=== PATIENT | female | born 1990 | race Caucasian/White ===

== ENCOUNTER 2018-05-30 06:57 | Inpatient (IN) | payer BC ==
[~2018-05-30] VITALS: Ht 175.3 cm; Wt 87.2 kg
[2018-05-30] VITALS (33 sets, daily range): BP systolic 94–124; BP diastolic 54–84; PULSE 72–109; TEMP 97.5–98.5
[~2018-05-30 06:57] MED LIST: MOTRIN 800800 MG/TAB PO; PERCOCET 325 MG1 TA2 PO; PRENATAL; ZANTAC 7575 MG PO
--- NOTE | 2018-05-30 07:04 | NUR ---
[id number] Hardin ambulatory to LR 5 for scheduled induction of labor. Reports good FM, no VB or LOF. Assisted into gown and advised on plan of care. 0711-Placed on EFM. VSS, see flow record. Assessment complete. 0727-IV to left hand, blood collected and sent to lab per order, LR infusing per order. Consents reviewed and signed. 0748-SVE /-2, YOI, repositioned WL. 0751-Pitocin started per protocol, see EMAR. Updated on plan of care.
[2018-05-30] MEDS ORDERED: PROMETRIUM200 M1 PO (07:05)
[2018-05-30 08:16] LABS: BASO % 0.1 % (0.0-2.0); EOS # 0.1 (0.0-0.7); EOS % 1.3 % (0-4.0); GRAN # 6.1 (1.4-6.5); GRAN % 71.5 % (42.2-75.2); HEMOGLOBIN 13.2 g/dl (12.5-16.0); LYMPH # 1.6 (1.2-3.4); LYMPH % 18.6 % (20.0-51.0); MEAN CELL VOLUME 93 fl (80.0-100.0); MEAN CORPUSCULAR HEMOGLOBIN 31 pg (27.0-31.0); MEAN CORPUSCULAR HGB CONC 34 g/dl (33.0-37.0); MEAN PLATELET VOLUME 11.9 fl (7.4-10.4); MONO # 0.7 (0.1-0.6); MONO % 7.9 % (1.7-9.3); PLATELET COUNT 208 K/mm3 (130-400); RED BLOOD COUNT 4.21 M/mm3 (4.10-5.30); REDCELL DISTRIBUTION WIDTH-CV 13.6 % (11.5-14.5)
--- NOTE | 2018-05-30 08:20 | NUR ---
0820-Dr. Leong on unit. Reviews FHR monitor. In to see patient. Discusses plan of care. with patient. 0822-SVE /-2, AROM clear fluid noted. Zunilda care provided.
--- NOTE | 2018-05-30 09:30 | NUR ---
09-MEGHAN Joseph notified of patients desire for epidural. IVF bolus started. 936-MEGHAN Joseph to unit. Patient sitting upright. 40-Opal to room. Timeout complete. 47-Single shot adminsitered by MEGHAN Joseph, patient denies symptoms of reaction or side effects. 50-Repositioned WL. Updated on safety and plan of care.
--- NOTE | 2018-05-30 10:15 | NUR ---
1015-Brice to DD, Clear yellow urine return. 1016-SVE /-2, bloody show noted. Zunilda care provided. Repositioned Semi Fowlers WL. 1020-Patient reports "I feel light headed." Maternal BP 102/56 HR 74. Patient layed back in bed wedge left. IVF bolus 1022-Maternal BP 88/54 HR 88, 10mg Ephedrine administered per protocol, see EMAR. 1028-Maternal BP 94/54 HR 82 Patient reports "I feel a little better." 10mg ephedrine adminsitered per protocol, see EMAR. 1032-Maternal BP 108/58. Peanut ball placed WL.
--- NOTE | 2018-05-30 11:45 | NUR ---
Patients spouse reports patient is feeling pressure, SVE completed and noted changes as documented. Patient tolerated well. Will continue to monitor.
--- NOTE | 2018-05-30 12:16 | NUR ---
1216- on unit. Reviews FHR monitor. Orders to check cervix in 15min and begin pushing if complete.
--- NOTE | 2018-05-30 12:30 | NUR ---
1230-SVE C/100/+1, Repositioned WL, Brice D/C 200ml clear yellow urine. Updated MD at desk on unit. Orders to push with patient. 1235-Patient begin pushing with contraction, moves vertex well. Update MD on unit at desk and request for delivery. 1237-MD to room. 1241-Patient begins pushing with Dr. Leong through contraction. Moves vertex well. 1242-Spontaneous vaginal delivery of head by Dr. Leong immediately followed by body of female . Cord Clamped x2 and Cut by MD. Infant to Mothers abdomen. Care of assumed by JENN Zuniga.Apgars of . 1st Degree MLL repaired by Dr. Leong. 1248-Spontaneous delivery of intact placenta by MD. IVF bolus of pitocin per MD orders and policy. Fundal massage firm. Lochia WNL. EBL 250ml. Zunilda care provided. Ice to perineum. Updated on safety and plan of care.
--- NOTE | 2018-05-30 15:00 | NUR ---
1500-Patient attempted to ambulate to bathroom. BLE remain "weak." Assisted into wheelchair and into bathroom, unable to void. Zunilda care provided and assisted back to wheelchair and into room 207. VSS. Fundal massage firm. Amrit WNL. Updated on plan of care and safety. 1630-Patient up to bathroom. Voids 1000ml clear yellow urine. VSS. No further needs.
[2018-05-31 09:30] VITALS: BP 100/71; PULSE 95; TEMP 97.4
--- NOTE | 2018-05-31 10:16 | NUR ---
Initial visit; Parents thanked Janitorial Cleaner for offering congratulations and God's blessings for the of their daughter. Janitorial Cleaner thanked them for choosing [facility].
[2018-05-31] MEDS ORDERED: IBU600 MG PO (12:22)
== END 2018-05-31 15:45 | disposition home or self-care (01) | DRG 807 ==
LOC: LDR 06:57 → OB 15:00 → LDR 18:16 → OB 05-31 15:45
PROVIDERS: ADMIT Obstetrics & Gynecology
PROC: 10E0XZZ Delivery of Products of Conception, External Approach (ICD-10-PCS; principal; 2018-05-30)
PROC: 10907ZC Drainage of Amniotic Fluid, Therapeutic from Products of Conception, Via Natural or Artificial Opening (ICD-10-PCS; 2018-05-30)
PROC: 3E033VJ Introduction of Other Hormone into Peripheral Vein, Percutaneous Approach (ICD-10-PCS; 2018-05-30)
PROC: 0HQ9XZZ Repair Perineum Skin, External Approach (ICD-10-PCS; 2018-05-30)
DX: O70.0 First degree perineal laceration during delivery (principal); Z37.0 Single live birth; Z3A.39 39 weeks gestation of pregnancy
CPT/HCPCS: J2590; J2795; J7120

== ENCOUNTER 2020-07-29 06:37 | Inpatient (IN) | payer BC ==
[~2020-07-29] VITALS: Ht 175.3 cm; Wt 87.3 kg
[2020-07-30] VITALS (24 sets, daily range): BP systolic 88–128; BP diastolic 51–74; PULSE 68–106; TEMP 97.2–97.6
--- NOTE | 2020-07-30 06:35 | NUR ---
Pt arrived on unit ambulatory for scheduled induction of labor. Pt reports occasional contractions, denies leaking of fluid or vaginal bleeding and reports normal movement. EFM and toco monitors started. Vital signs WNL. Plan of care for induction reviewed.
[2020-07-30 08:02] LABS: BASO % 0.1 % (0.0-2.0); EOS # 0.1 (0.0-0.7); EOS % 0.7 % (0-4.0); GRAN # 6.6 (1.4-6.5); GRAN % 77.8 % (42.2-75.2); HEMATOCRIT 37.5 % (37.0-47.0); HEMOGLOBIN 12.7 g/dl (12.5-16.0); LYMPH # 1.4 (1.2-3.4); LYMPH % 16.3 % (20.0-51.0); MEAN CELL VOLUME 93 fl (80.0-100.0); MEAN CORPUSCULAR HEMOGLOBIN 32 pg (27.0-31.0); MEAN CORPUSCULAR HGB CONC 34 g/dl (33.0-37.0); MEAN PLATELET VOLUME 11.8 fl (7.4-10.4); MONO # 0.4 (0.1-0.6); MONO % 4.7 % (1.7-9.3); PLATELET COUNT 201 K/mm3 (130-400); RED BLOOD COUNT 4.02 M/mm3 (4.10-5.30); REDCELL DISTRIBUTION WIDTH-CV 13.2 % (11.5-14.5)
--- NOTE | 2020-07-30 09:21 | NUR ---
0915- MEGHAN Joseph at the bedside for epidural placement per pt's request. Pt sitting up on the on edge of the bed. SPO2 monitor started. EFM tracing maternal HR as coorelates with SPO2 monitor. 920- Single shot per MEGHAN Joseph. See anesthesia records for details. 925- Assisted pt back to supine position with left wedge. EFM and toco monitors adjusted.
--- NOTE | 2020-07-30 11:00 | NUR ---
1100- at the bedside for delivery. Pt set up for delivery. 1102- Pushing started. 1104- of viable male . [place] placed on the pt's abdomen. Cords clamped and cut. Care of the given to nursery RN at the bedside. 1107- of placenta. Pitocin started at 333ml/hr. Fundus firm and lochia WNL.
--- NOTE | 2020-07-30 13:30 | NUR ---
Pt up to the bathroom with standby assist and without complications. Pt was able to void. Zunilda-care done. Pt transferred to room 218 ambulatory. Oriented to room and call light within reach. Plan of care reviewed.
[2020-07-31] MEDS ORDERED: MOTRIN 800800 MG/TAB PO (00:56)
[2020-07-31 01:00] VITALS: BP 112/75; PULSE 82
[2020-07-31 07:50] VITALS: BP 99/69; PULSE 90; TEMP 98
--- NOTE | 2020-07-31 10:04 | NUR ---
Initial visit; Parents thanked Database Manager for offering congratulations and God's blessings for the of their son. Database Manager thanked family for choosing [facility].
[2020-07-31 11:46] VITALS: BP 99/66; PULSE 74; TEMP 97.8
== END 2020-07-31 18:00 | disposition home or self-care (01) | DRG 807 ==
LOC: OB 06:37 → LDR 07-30 06:24 → OB 07-30 08:43
PROVIDERS: ADMIT Obstetrics & Gynecology
PROC: 10E0XZZ Delivery of Products of Conception, External Approach (ICD-10-PCS; principal; 2020-07-30)
PROC: 0KQM0ZZ Repair Perineum Muscle, Open Approach (ICD-10-PCS; 2020-07-30)
PROC: 10907ZC Drainage of Amniotic Fluid, Therapeutic from Products of Conception, Via Natural or Artificial Opening (ICD-10-PCS; 2020-07-30)
PROC: 3E033VJ Introduction of Other Hormone into Peripheral Vein, Percutaneous Approach (ICD-10-PCS; 2020-07-30)
DX: O70.1 Second degree perineal laceration during delivery (principal); Z37.0 Single live birth; Z3A.39 39 weeks gestation of pregnancy
CPT/HCPCS: J2400; J2590; J2795; J7120

== ENCOUNTER → 2020-07-29 | Outpatient (CLI) | payer BC ==
[~2020-07-29] MED LIST changes: +IBU600 MG PO; +PROMETRIUM200 M1 PO
== END | disposition still patient (30) ==
LOC: ZCOL.LAB 07-24 06:26
DX: Z20.822 Contact with and (suspected) exposure to COVID-19 (principal)